=== PATIENT | female | born 1990 ===

== ENCOUNTER 2017-03-20 21:40 | Emergency (ER) | payer BC, MEDICAID ==
[2017-03-20 21:40] VITALS: BMI 33.6
[2017-03-20 21:46] VITALS: BP 131/63; PULSE 97; RESP 18; TEMP 98.3; O2SAT 99
[2017-03-20] MEDS ORDERED: Metoclopramide 10 mg/10 ml Cup PO ONE (22:05)
--- NOTE | 2017-03-20 22:07 | ED PDOC ---
HPI: Headache Time Seen by Provider: 03/20/17 21:44 Chief Complaint (Nursing): Headache Chief Complaint (Provider): headache History Per: Patient Additional Complaint(s): 26 yo female, , presents to ED with complaints of headache on and off x 1 month, worse today. Patient is 14 weeks reports that she has not been taking anything for her headaches because she is . No abdominal pain or vag. bleeding. Bp reports her BP's have been normal at her dr appointments thus far. Past Medical History Reviewed: Nursing Documentation, Vital Signs Vital Signs: Last Vital Signs Temp 98.3 F 03/20/17 21:41 Pulse 97 H 03/20/17 21:41 Resp 18 03/20/17 21:41 BP 131/63 03/20/17 21:41 Pulse Ox 99 03/20/17 21:41 - Medical History PMH: Anxiety, Seizures (Epilepsy ) Denies: Alzheimer's Disease, Anemia, Arthritis, Asthma, Atrial Fibrillation, Bronchitis, Cardia Arrhythmia, CHF, COPD, Crohn's Disease, Dementia, Depression , Diverticulitis, Emphysema, Fractures, Gastritis, Gall Bladder Disease, HIV, HTN, Hypercholesterolemia, Hyperthyroidism, Hypothyroidism, Kidney Stones, Migraine, Mitral Valve Prolapse, Multiple Sclerosis, Osteoporosis, Pancreatitis , Parkinson's Disease, Peripheral Edema, Pneumonia, Pulmonary Embolism, Chronic Kidney Disease, Rheumatoid Arthritis, Sickle Cell Disease, Sexually Transmitted Disease, Sleep Apnea, TIA - Surgical History Surgical History: Denies: Appendectomy, CABG, Carotid Endarterectomy, Cholecystectomy, Coronary Stent, Pacemaker, Tonsillectomy - Family History Family History: States: Diabetes - Living Arrangements Living Arrangements: With Family - Social History Current smoker - smoking cessation education provided: No Alcohol: None Drugs: Denies - Immunization History Hx Tetanus Toxoid Vaccination: No Hx Influenza Vaccination: No Hx Pneumococcal Vaccination: No - Home Medications Home Medications: Ambulatory Orders Medication Instructions Recorded Ibuprofen [Motrin Tab] 1 tab PO TID PRN #30 tab 06/12/16 diaZEpam [Valium] 1 tab PO TID PRN #12 tab 06/12/16 Nitrofurantoin Macrocrystals 100 mg PO BID #13 cap 11/08/16 [Macrobid] Metoclopramide [Reglan] 10 mg PO Q6 #10 tab 03/21/17 - Allergies Allergies/Adverse Reactions: Allergies Allergy/AdvReac Type Severity Reaction Status Date / Time petra Allergy SWELLING Uncoded 03/20/17 21:42 Review of Systems ROS Statement: Except As Marked, All Systems Reviewed And Found Negative Neurological: Positive for: Headache Physical Exam - Reviewed Nursing Documentation Reviewed: Yes Vital Signs Reviewed: Yes - Physical Exam Appears: Positive for: Well, Non-toxic, No Acute Distress Head Exam: Positive for: ATRAUMATIC, NORMAL INSPECTION, NORMOCEPHALIC Skin: Positive for: Normal Color, Warm, DRY Eye Exam: Positive for: EOMI, Normal appearance, PERRL ENT: Positive for: Normal ENT Inspection Neck: Positive for: Normal, Painless ROM Cardiovascular/Chest: Positive for: Regular Rate, Rhythm Respiratory: Positive for: CNT, Normal Breath Sounds Gastrointestinal/Abdominal: Positive for: Normal Exam, Bowel Sounds, Soft Back: Positive for: Normal Inspection Extremity: Positive for: Normal ROM Neurologic/Psych: Positive for: Alert, Oriented - ECG O2 Sat by Pulse Oximetry: 99 Medical Decision Making Medical Decision Making: Medicated with Benadryl and Reglan On re-eval, medicated with Motrin PO. ON re-eval, no complaints of headache. Neuro exam remains non focal Advised to follow up with OB?PROGRAM PROPOSALS COORDINATOR, return to ED with any concerns Disposition - Clinical Impression Clinical Impression: Headache in - Patient ED Disposition Is Patient to be Admitted: No - Disposition Disposition: Routine/Home Disposition Time: 01:24 Condition: STABLE Prescriptions: Metoclopramide [Reglan] 10 mg PO Q6 #10 tab Instructions: Migraine Headache (ED) - POA Present On Arrival: None
== END 2017-03-21 01:12 | disposition home or self-care (01) ==
LOC: H.ER 21:40
DX: G43.909 Migraine, unspecified, not intractable, without status migrainosus (principal); Z33.1 Pregnant state, incidental

== ENCOUNTER 2017-08-05 16:11 | Emergency (ER) | payer MEDICAID ==
--- NOTE | 2017-08-05 17:24 | OBHP ---
Datetime: 08/05/2017 17:05 IP Adm Impression: , intrauterine ; No Active Labor IP Admit Plan: Observation/Evaluation; Discharge home Admit Comment, IP Provider: The patient is a 27-year-old 4 para 1 due date 09/25/2017 estima kenny gestational age 34 weeks. She presents to labor delivery complaining of decreased movement 12 hours duration patient denies any complications patient reports no uterine contractions no leakage of fluid. Past medical history none Past surgical history delivery Medications none Social history no alcohol tobacco Review of systems patient denies headache chest pain dysuria vaginal bleeding Vital signs stable afebrile Physical exam see notes Intrauterine at 35 weeks decrease movement records from Dr. Loredo office reviewed NST reactive [place] no contractions Patient cleared for discharge for labor precautions and movement counts Pelvic Type - PN: Adequate Extremities - PN: Normal Abdomen - PN: Normal Back - PN: Normal Breast - PN: Not Done Lungs - PN: Normal Heart - PN: Normal Thyroid - PN: Normal Neurologic - PN: Normal HEENT - PN: Normal General - PN: Normal Presentation-Admit: Vertex Gestation - Est Wks by US: 35.0 Vital Signs Provider: Reviewed IP Chief Complaint: evaluation Genitourinary Exam: Not Done DTRs - PN: Normal
[2017-08-08 16:50] VITALS: BP 106/70; PULSE 90; RESP 18; TEMP 98.1; O2SAT 100
== END 2017-08-05 19:06 | disposition home or self-care (01) ==
LOC: H.EROB2 16:11
DX: O36.8131 Decreased fetal movements, third trimester, fetus 1 (principal); Z3A.35 35 weeks gestation of pregnancy; Z87.59 Personal history of other complications of pregnancy, childbirth and the puerperium; O47.03 False labor before 37 completed weeks of gestation, third trimester

== ENCOUNTER 2017-08-19 12:29 | Emergency (ER) | payer OTHER, BC, MEDICAID ==
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
[2017-08-22 15:32] VITALS: BP 116/75; PULSE 81; O2SAT 100
== END 2017-08-19 13:55 | disposition home or self-care (01) ==
LOC: H.EROB2 12:29 → H.EROB 12:29 → H.EROB2 13:55
DX: O26.93 Pregnancy related conditions, unspecified, third trimester (principal); Z04.1 Encounter for examination and observation following transport accident; Z3A.34 34 weeks gestation of pregnancy

== ENCOUNTER 2017-09-11 22:14 | Inpatient (IN) | payer BC, MEDICAID ==
[2017-09-12 01:00] VITALS: BMI 40.2
--- NOTE | 2017-09-12 01:18 | OBHP ---
Datetime: 09/12/2017 01:03 IP Adm Impression: Term, intrauterine IP Adm Impression Other: Irregular contractions IP Admit Plan: Observation/Evaluation Admit Comment, IP Provider: IUP at 38wks, c/o pelvic pressure and discomfort since 9pm on . She denies any LOF or VB. She felt good movements. Pain scle initially was 3/10 but jonatan t up to 5/10. PNC with Dr [place], uncomplicated thus far. [place]-Irritability with contractions Q 4-7mins, FHR - Category 1, Cx- 0/0/-3, Presentation- vtx con firmed with a bedside sonogram. Assessment: IUP at 38wks Irregular uterine contractions Plan: As per Dr Washington Continue monitoring Iv Hydration Reevaluate . FHR - Baseline A Provider: 140 Membranes, Provider: Intact Comments, ACOG Physical Exam: Abd: Soft, NT, BS Present EGA AdmitDate IP: 38.1 Vital Signs Provider: Reviewed IP Chief Complaint: Maternal discomfort NICHD Variability Prov Fetus A: Moderate 6-25bpm NICHD Accel Fetus A IP Provider: 10X10 FHR Category Provider Fetus A: Category II NICHD Decel Fetus A IP Provider: None Dilatation, Provider: 0 Effacement, Provider: 0 Station, Provider: -3
[2017-09-12] MEDS: Lactated Ringer's 1,000 ML IV SCH ×5 (01:30→23:27)
[2017-09-12 02:15] LABS: BASO % 0.3 % (0.0-2.0); EOS # 0.1 K/uL (0.0-0.7); EOS % 0.7 % (0.0-4.0); HEMATOCRIT 35.4 % (34.0-47.0); LYMPH # 2.9 K/uL (1.0-4.3); LYMPH % 20.8 % (20.0-40.0); MEAN CORPUSCULAR HGB CONC 30.8 g/dL (33.0-37.0); MEAN PLATELET VOLUME 11.4 fl (7.2-11.7); MONO # 1.1 K/uL (0.0-0.8); MONO % 7.8 % (0.0-10.0); NEUT # 9.8 K/uL (1.8-7.0); NEUT % 70.4 % (50.0-75.0); RED CELL DISTRIBUTION WIDTH 16.1 % (11.5-14.5)
[2017-09-12 02:24] LABS: BLOOD UREA NITROGEN 11 mg/dl (7-17); CARBON DIOXIDE 21 mmol/L (22-30); CHLORIDE 105 mmol/L (98-107); GFR AFRICAN-AMERICAN > 60; GLUCOSE,RANDOM 85 mg/dL (65-105); POTASSIUM 4.2 MMOL/L (3.6-5.0); SODIUM 135 mmol/l (132-148)
[2017-09-12 06:55] LABS: RBC URINE 12 /hpf (0-3); URINE BACTERIA MANY (<OCC); URINE BILIRUBIN NEGATIVE (NEGATIVE); URINE BLOOD SMALL (NEGATIVE); URINE COLOR YELLOW (YELLOW); URINE GLUCOSE (UA) NEG (Normal); URINE KETONE NEGATIVE (NEGATIVE); URINE LEUKOCYTE ESTERASE LARGE Leu/uL (Negative); URINE PROTEIN 30 mg/dL (NEGATIVE); URINE UROBILINOGEN 0.2-1.0 mg/dL (0.2-1.0); WBC URINE 28 /hpf (0-5)
[2017-09-12] MEDS ORDERED: Oxytocin 30 UNITS in Sodium Chloride 0.9% 500 ML IV ONE (07:12)
[2017-09-12] MEDS ORDERED: ceFAZolin IV 2 gm in Dextrose 2 GM/50 ML BAG IVPB ONE (07:15)
[2017-09-12] MEDS ORDERED: ePHEDrine 50 mg/ml Inj ONE (07:56)
[2017-09-12] MEDS ORDERED: Morphine 1 mg/ml preservative-free Inj(Duramorph) ONE (07:56)
[2017-09-12] MEDS ORDERED: Phenylephrine 10 mg/ml Inj ONE (09:20)
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
--- NOTE | 2017-09-12 09:35 | OBDS ---
DELIVERY PERSONNEL Delivery Doctor: Cookie Carter MD Scrub Nurse: Becka Hannah Anesthesiologist: Dr. Garnett MATERNAL INFORMATION Delivery Anesthesia: Spinal Medications in Delivery: Pitocin 30 units Estimated Blood Loss (ml): 800ml Placenta Cultured: No Maternal Complications: None LABOR SUMMARY EDC: 09/25/2017 00:00 No. Babies in Womb: 1 LABOR INFORMATION Reason for Induction: Not Applicable Group B Beta Strep: Negative Steroids Given: None Reason Steroids Not Administered: Not Applicable STAGES OF LABOR Stage 3 hrs: 0 Stage 3 min: 1 VAGINAL DELIVERY Episiotomy: None Laceration Extension: N/A Laceration Type: None CSECTION DELIVERY Primary Indication: Repeat Elective Secondary Indication: Repeat Elective CSection Urgency: Elective CSection Incidence: Repeat Labor: Labor Elective: Elective CSection Incision: Lower Uterine Transverse Sterilization Procedure: Derek BABY A INFORMATION Delivery Date/Time: 09/12/2017 08:42 Method of Delivery: Born in Route : No : N/A Forceps: N/A Vacuum Extraction: Successful Shoulder Dystocia : No SHOULDER DYSTOCIA BABY A Delivery Date/Time: 09/12/2017 08:42 PRESENTATION/POSITION BABY A Presentation: Cephalic Cephalic Presentation: Vertex Breech Presentation: N/A PLACENTA INFORMATION BABY A Placenta Delivery Time : 09/12/2017 08:43 Placenta Method of Delivery: Spontaneous Placenta Status: Delivered SCORES BABY A Heart Rate 1 min: >100 bpm Resp Effort 1 min: Slow, Irregular Reflex Irritability 1 min: Cough or Sneeze or Pulls Away Muscle Tone 1 min: Active Motion Color 1 min: Body [place], Extremities Blue Resuscitation Effort 1 min: Tactile Stimulation SCORE 1 MIN: 8 Heart Rate 5 min: >100 bpm Resp Effort 5 min: [place] Reflex Irritability 5 min: Cough or Sneeze or Pulls Away Muscle Tone 5 min: Active Motion Color 5 min: Body [place], Extremities Blue Resuscitation Effort 5 min: Tactile Stimulation SCORE 5 MIN: 9 INFANT INFORMATION BABY A Gestational Age at Delivery: 38.0 Gestational Status: Term Infant Outcome : Liveborn Condition : Stable Sex: Male IDENTIFICATION/MEDS BABY A ID Band Number: [id number] ID Band Location: Left Leg; Left Arm WEIGHT/LENGTH BABY A Birthweight (gms): 2740 Weight (lb): 6 Infant Weight (oz): 1 CORD INFORMATION BABY A No. Cord Vessels: 3 Nuchal Cord : N/A Cord Blood Taken: N/A Suction: None
[2017-09-12] MEDS ORDERED: Oxycodone/Acetaminophen 5/325 mg Tab PO PRN (09:40)
[2017-09-12] MEDS: DiphenhydrAMINE 50 mg/ml Inj IVP PRN ×2 (10:30→16:31)
[2017-09-12] MEDS: Oxycodone/Acetaminophen 5/325 mg Tab PO PRN (22:17)
[2017-09-12] MEDS: Simethicone 80 mg Chewtab PO SCH ×2 (22:18→22:20)
[2017-09-13] MEDS: Simethicone 80 mg Chewtab PO SCH ×4 (03:45→21:59)
[2017-09-13] MEDS: Oxycodone/Acetaminophen 5/325 mg Tab PO PRN ×2 (03:45→21:59)
[2017-09-13 05:59] LABS: BASO # 0.1 K/uL (0.0-0.2); BASO % 0.6 % (0.0-2.0); EOS % 0.5 % (0.0-4.0); LYMPH # 1.6 K/uL (1.0-4.3); LYMPH % 15.4 % (20.0-40.0); MEAN CELL VOLUME 78.9 fl (81.0-99.0); MEAN CORPUSCULAR HEMOGLOBIN 24.4 pg (27.0-31.0); MEAN CORPUSCULAR HGB CONC 30.9 g/dL (33.0-37.0); MEAN PLATELET VOLUME 10.9 fl (7.2-11.7); MONO # 1.1 K/uL (0.0-0.8); MONO % 10.6 % (0.0-10.0); NEUT # 7.6 K/uL (1.8-7.0); NEUT % 72.9 % (50.0-75.0); NRBC % 0.1 % (0.0-0.0); WHITE BLOOD COUNT 10.4 K/uL (4.8-10.8)
[2017-09-13] MEDS: DiphenhydrAMINE 50 mg/ml Inj IVP PRN (07:00)
--- NOTE | 2017-09-13 13:16 | OBPPN ---
Datetime: 09/13/2017 13:14 PP Pain Prov: Within normal limits PP Nausea Prov: Denies PP Flatus Prov: Yes PP BM Prov: No PP Breasts Prov: Normal PP Heart Prov: Normal PP Lungs Prov: Normal PP Abdomen/Uterus Prov: Normal PP Lochia Prov: Normal PP Vulva/Perineum Prov: Normal PP CVA Tenderness Prov: Normal PP Extremities Prov: Normal PP C/S Incision Prov: Normal PP Progress Prov: Normal PP Impression Prov: Normal progression PP Plan Prov: Continue present management PP Progress Note Prov: stable pod1 continue present care IP PP Procedures: None Vital Signs Provider PP: Reviewed; Within Normal Limits
--- NOTE | 2017-09-13 15:06 | OP ---
PROCEDURE DATE: 09/12/2017 PREOPERATIVE DIAGNOSES: Term , previous section x1 and multiparity. POSTOPERATIVE DIAGNOSES: Term , previous section x1 and multiparity. PROCEDURE: Repeat low-transverse section and bilateral tubal ligation. SURGEON: Alonso Carter MD. ASSURANCE MANAGER: Daryl Mcfarland MD. TYPE OF ANESTHESIA: Spinal anesthesia. ANESTHESIA ADMINISTERED BY: Edin Garnett MD. FINDINGS: Term-size uterus, live baby boy, Apgars 8 and 9, clear fluid, cord with 3 vessels. Placenta, tubes and ovaries within normal limits. ESTIMATED BLOOD LOSS: 800 mL. DESCRIPTION OF PROCEDURE: With the patient in a supine position and spinal anesthesia, Dr. Mcfarland and I prepared the patient for surgery. After this was done, a Pfannenstiel incision was made in the uterus, taken down to the fascia in layers. Fascia was incised and extended bilaterally, Dr. Mcfarland doing his side and I am doing my side. After this was done, the muscle was from the fascia by sharp dissection. After which the midclavicular line peritoneum was grasped, incised and extended vertically, Dr. Mcfarland assisting along the way. After this was done, the paracolic gutters were packed with laps pushing the bowel away from the operative field. Then, bladder flap was established, Dr. Mcfarland assisting along the way. After this was done, a low-transverse incision was made in the uterus curving up and extended bilaterally. After this was satisfactory, the baby was removed without any complication and given to high pressure boiler operator who resuscitated the baby. Placenta was removed intact. Uterus was exteriorized and closed in 2 layers with 1 Vicryl maintaining hemostasis, Dr. Mcfarland assisting along the way. After this was done and hemostasis was maintained, the pelvic cavity was irrigated until clean. The wet laps were removed from the paracolic gutters. The tubal ligation was done bilaterally with modified [place] tubal ligation bilaterally without any complication. After irrigating again, the uterus was replaced, put back into place and the gutters were cleaned with wet laps. After this was done, the tubes were examined to make sure that there was no bleeding and that they did not come apart. The peritoneum was then grasped and closed with 1 Vicryl. The muscle was approximated with 1 Vicryl. The fascia was then closed with 1 Vicryl running interlocking stitch starting at each end and finishing in the midline, Dr. Mcfarland doing his side and I am doing my side. After this was done, the subcutaneous layer was closed with 2-0 plain and the skin was closed with irena. Dr. Mcfarland was present from the beginning of the surgery to the end of the surgery. The patient tolerated procedure well and was in satisfactory condition on the way to recovery room. Alonso Carter MD
[2017-09-14] MEDS: Simethicone 80 mg Chewtab PO SCH ×5 (04:00→21:42)
[2017-09-14] MEDS: Oxycodone/Acetaminophen 5/325 mg Tab PO PRN (04:54)
[2017-09-15] MEDS: Oxycodone/Acetaminophen 5/325 mg Tab PO PRN (02:07)
[2017-09-15] MEDS: Simethicone 80 mg Chewtab PO SCH ×3 (04:37→09:47)
[2017-09-15] MEDS ORDERED: Influenza Vaccine 18yr & older 0.5 ML/45 MCG SYR IM ONE (08:33)
--- NOTE | 2017-09-15 08:40 | OBPPN ---
Datetime: 09/15/2017 08:37 PP Pain Prov: Within normal limits PP Nausea Prov: Denies PP Flatus Prov: Yes PP BM Prov: No PP Breasts Prov: Normal PP Heart Prov: Normal PP Lungs Prov: Normal PP Abdomen/Uterus Prov: Normal PP Lochia Prov: Normal PP Vulva/Perineum Prov: Normal PP CVA Tenderness Prov: Normal PP Extremities Prov: Normal PP C/S Incision Prov: Normal PP Progress Prov: Normal PP Impression Prov: Normal progression PP Plan Prov: Continue present management PP Progress Note Prov: stable pod3 dc home today IP PP Procedures: None Vital Signs Provider PP: Reviewed; Within Normal Limits
--- NOTE | 2017-09-15 08:45 | OBDCSUM ---
Datetime: 09/15/2017 08:39 Discharged to, Provider: Home Follow up at, Provider: Disch Instr Activity: Bedrest; May be up to bathroom; May be up for meals; May Shower Disch Instr Diet: Regular Discharge Instructions, Provider: Specific instructions as noted Discharge Diagnosis, Provider: Term Delivered Discharge Time: 09/15/2017 08:39 Follow up in weeks, Provider: 1week in office Disch Referrals: None Disch Activity Restrictions: No exercising; No lifting; No driving; Minimize walking; Minimize stair -climbing; No sexual activity; Nothing in vagina - [place], tampons, douche Discharge Comment, Provider: kwadwo home today call office if any problems rto i week Contraception after Delivery: Tubal Ligation
[2017-09-15 17:57] VITALS: BP 126/82; PULSE 94; RESP 18; TEMP 97.6; O2SAT 98
== END 2017-09-15 13:00 | disposition home or self-care (01) | DRG 371 ==
LOC: H.EROB2 22:14 → H.L&D 09-12 01:00 → OBSVTOIN 09-12 06:38 → H.OB/GYN 09-12 13:50
PROVIDERS: ADMIT Specialist; ATTEND Specialist
PROC: 10D00Z1 Extraction of Products of Conception, Low, Open Approach (ICD-10-PCS; principal; 2017-09-12)
PROC: 0UB70ZZ Excision of Bilateral Fallopian Tubes, Open Approach (ICD-10-PCS; 2017-09-12)
PROC: 4A1HXCZ Monitoring of Products of Conception, Cardiac Rate, External Approach (ICD-10-PCS; 2017-09-12)
PROC: 3E0234Z Introduction of Serum, Toxoid and Vaccine into Muscle, Percutaneous Approach (ICD-10-PCS; 2017-09-15)
DX: O34.211 Maternal care for low transverse scar from previous cesarean delivery (principal); O09.43 Supervision of pregnancy with grand multiparity, third trimester; Z23 Encounter for immunization; Z37.0 Single live birth; Z30.2 Encounter for sterilization; Z3A.38 38 weeks gestation of pregnancy

== ENCOUNTER 2017-09-25 11:35 | Emergency (ER) | payer MEDICAID ==
[2017-09-25 11:38] VITALS: BMI 38.2
[2017-09-25 11:39] VITALS: TEMP 98
[2017-09-25] MEDS ORDERED: Sodium Chloride 0.9% 1,000 ML IV STA (12:27)
--- NOTE | 2017-09-25 13:27 | ED PDOC ---
HPI: Abdomen Time Seen by Provider: 09/25/17 11:42 Chief Complaint (Nursing): Abdominal Pain Chief Complaint (Provider): Abdominal Pain History Per: Patient History/Exam Limitations: no limitations Current Symptoms Are (Timing): Still Present Additional Complaint(s): 27 y/o female presents to the ED complaining of abdominal pain. Patient is a 10 day status post , which was performed here in [facility] by Dr. Bonilla. Patient is a transfer from [facility], where she presented complaining of lower abdominal pain, vaginal bleeding and intermittent rectal bleeding. According to the [facility] chart , a CAT scan was performed as well which indicated vaginal bleeding and Ileus but no appendicitis or any other acute conditions. Rectal and Pelvic exam were also performed at [place]. Normal WBC count was noted. Patient denies fever, vomiting, diarrhea or any further medical conditions. PMD: Alonso Bonilla MD Against Medical Advice - AMA Patient Left Against Medical Advice: The patient declines admission to the hospital and wishes to leave the Emergency Department. This action is against my medical advice. This decision was made with informed refusal. The patient was told that admission to the hospital is necessary. Explanation of the reasons why were discussed. The risks of leaving were explained to the patient and include, but are not limited to, worsening of known or currently unknown conditions, permanent disability and from undiagnosed or untreated conditions. The patient has the capacity to make this informed decision and understands my explanation of the current medical problem and risks of leaving. The patient voluntarily accepts these risks and signed an AMA form documenting our conversation. The patient was given the opportunity to ask questions and reconsider. The patient was encouraged to return to the Emergency Department at any time for further care. Past Medical History Reviewed: Historical Data, Nursing Documentation, Vital Signs Vital Signs: Last Vital Signs Temp 98.0 F 09/25/17 11:38 Pulse 77 09/25/17 11:38 Resp 18 09/25/17 11:38 BP 125/87 09/25/17 11:38 Pulse Ox 99 09/25/17 14:12 - Medical History PMH: Anxiety, Seizures (Epilepsy ) Denies: Alzheimer's Disease, Anemia, Arthritis, Asthma, Atrial Fibrillation, Bronchitis, Cardia Arrhythmia, CHF, COPD, Crohn's Disease, Dementia, Depression , Diabetes, Diverticulitis, Emphysema, Fractures, Gastritis, Gall Bladder Disease, HIV, HTN, Hypercholesterolemia, Hyperthyroidism, Hypothyroidism, Kidney Stones, Migraine, Mitral Valve Prolapse, Multiple Sclerosis, Osteoporosis , Pancreatitis, Parkinson's Disease, Peripheral Edema, Pneumonia, Pulmonary Embolism, Chronic Kidney Disease, Rheumatoid Arthritis, Sickle Cell Disease, Sexually Transmitted Disease, Sleep Apnea, TIA - Surgical History Surgical History: Denies: Appendectomy, CABG, Carotid Endarterectomy, Cholecystectomy, Coronary Stent, Pacemaker, Tonsillectomy - Family History Family History: States: Diabetes - Social History Current smoker - smoking cessation education provided: No (Never Smoked) Alcohol: Other (yes) Drugs: Denies - Immunization History Hx Tetanus Toxoid Vaccination: No Hx Influenza Vaccination: No Hx Pneumococcal Vaccination: No - Home Medications Home Medications: Ambulatory Orders Medication Instructions Recorded Multivit/Folic Acid/I 1 tab PO DAILY 09/12/17 [] Ibuprofen [Motrin Tab] 600 mg PO Q4H PRN #30 tab 09/15/17 oxyCODONE/Acetaminophen [Percocet 1 ea PO Q6 PRN #20 tab 09/15/17 5/325 mg Tab] - Allergies Allergies/Adverse Reactions: Allergies Allergy/AdvReac Type Severity Reaction Status Date / Time raspberries Allergy SWELLING Uncoded 03/20/17 21:42 Review of Systems ROS Statement: Except As Marked, All Systems Reviewed And Found Negative (As per HPI, otherwise negative) Constitutional: Negative for: Fever Gastrointestinal: Positive for: Abdominal Pain. Negative for: Vomiting, Diarrhea Genitourinary Female: Positive for: Vaginal Discharge, Other (Intermittent rectal bleeding) Physical Exam - Reviewed Nursing Documentation Reviewed: Yes Vital Signs Reviewed: Yes - Physical Exam Appears: Positive for: Well, Non-toxic, No Acute Distress Head Exam: Positive for: ATRAUMATIC, NORMAL INSPECTION, NORMOCEPHALIC Skin: Positive for: Normal Color, Warm, Dry Eye Exam: Positive for: Normal appearance, EOMI, PERRL ENT: Positive for: Normal ENT Inspection Neck: Positive for: Normal, Painless ROM, Supple Cardiovascular/Chest: Positive for: Regular Rate, Rhythm. Negative for: Murmur Respiratory: Positive for: Normal Breath Sounds. Negative for: Accessory Muscle Use, Respiratory Distress Gastrointestinal/Abdominal: Positive for: Tenderness (tenderness in suprapubic area), Other (Scar of in lower abdomen) Extremity: Positive for: Normal ROM Neurologic/Psych: Positive for: Alert, Oriented - ECG O2 Sat by Pulse Oximetry: 99 (RA) Pulse Ox Interpretation: Normal Medical Decision Making Medical Decision Making: Time: 12:20 Initial Impression: Abdominal pain status post c-sec and vaginal discharge Plan: BMP Surgery Routine NPO Diet CBC w/ diff Sodium Chloride 1L IV Blood Culture Consulted with Dr Bonilla who will see patient in ED. He does not recommend antibiotics at this time. Scribe Attestation: Documented by Ryan Freitas acting as a scribe for Aubrey Oliveira MD. Scribe Attestation: All medical record entries made by the Scribe were at my direction and personally dictated by me. I have reviewed the chart and agree that the record accurately reflects my personal performance of the history, physical exam, medical decision making, and the department course for this patient. I have also personally directed, reviewed, and agree with the discharge instructions and disposition. Disposition - Clinical Impression Clinical Impression: Abdominal pain, Ileus, Left against medical advice - Patient ED Disposition Is Patient to be Admitted: No Discussed With Dr.: Alonso Bonilla Doctor Will See Patient In The: Office Counseled Patient/Family Regarding: Studies Performed, Diagnosis, Need For Followup - Disposition Referrals: Alonso Bonilla MD [Staff Provider] - Disposition: Against Medical Advice Disposition Time: 14:11 Condition: STABLE Additional Instructions: You are leaving against medical advice. Return for worsening. Follow up with your PCP tomorrow. Instructions: Clear Liquid Diet (ED), Against Medical Advice (ED), Ileus (ED)
[2017-09-25 14:30] VITALS: BP 120/78; PULSE 78; RESP 17; O2SAT 98
== END 2017-09-25 14:29 | disposition left against medical advice (07) ==
LOC: H.ER 11:35 → UNDOADMIN 12:28 → H.ERHOLD 12:28 → H.ER 14:29
DX: K56.7 Ileus, unspecified (principal); F41.9 Anxiety disorder, unspecified; G40.909 Epilepsy, unspecified, not intractable, without status epilepticus